=== PATIENT | male | born 1960 ===

== ENCOUNTER 2017-04-01 16:44 | Emergency (ER) | payer MEDICARE, MEDICAID ==
[2017-04-01 17:00] VITALS: BMI 28.8
[2017-04-01 17:02] VITALS: BP 125/76; PULSE 108; RESP 16; TEMP 98.8; O2SAT 100
[2017-04-01] MEDS ORDERED: Albuterol-Ipratrop 3 mg / 0.5 (3 ml) UD INH STA (17:19)
--- NOTE | 2017-04-01 17:23 | ED PDOC ---
HPI: CCC, URI, Sore Throat Time Seen by Provider: 04/01/17 17:19 Chief Complaint (Nursing): Flu-like Symptoms Chief Complaint (Provider): Cough, Shortness of breath History Per: Patient, Family (daughter and ) Onset/Duration Of Symptoms: Days (x 3) Current Symptoms Are (Timing): Still Present Additional Complaint(s): Jeovany Pierce is a 56-year-old male who presents to the emergency department complaining of cough and chest congestion for the past 3 days. Patient was seen by PMD 3 days ago and was started on Levofloxacin, Promethazine, and Ventolin inhaler without improvement in symptoms. No fever or chills. Patient denies any recent travel. PMD: Dr. Kentrell Chairez MD Past Medical History Reviewed: Historical Data, Nursing Documentation, Vital Signs Vital Signs: Last Vital Signs Temp 98.8 F 04/01/17 17:02 Pulse 108 H 04/01/17 17:02 Resp 16 04/01/17 17:02 BP 125/76 04/01/17 17:02 Pulse Ox 100 04/01/17 17:25 - Medical History PMH: Arthritis, Diabetes, HTN, Hypercholesterolemia, End Stage Renal Disease ( MWF dialysis) - Family History Family History: States: No Known Family Hx - Living Arrangements Living Arrangements: With Family - Social History Current smoker - smoking cessation education provided: No Alcohol: None Drugs: Denies - Home Medications Home Medications: Ambulatory Orders Medication Instructions Recorded Apixaban [Eliquis] 5 mg PO BID 06/23/16 Atorvastatin [Lipitor] 40 mg PO HS 06/23/16 Lorazepam [Ativan] 0.5 mg PO HS PRN 06/23/16 Nateglinide [Starlix] 120 mg PO TID 06/23/16 Losartan [Cozaar] 25 mg PO DAILY #30 tab 06/25/16 Metoprolol Succinate XL [Toprol XL] 75 mg PO DAILY #30 tab 06/25/16 oxyCODONE/Acetaminophen [Percocet 1 tab PO QID PRN #20 tab 01/05/17 5/325 mg Tab] Oseltamivir Phosphate [Tamiflu] 75 mg PO BID #10 capsule 04/01/17 Prednisone 50 mg PO DAILY #5 tablet 04/01/17 guaiFENesin/Codeine [Robitussin 5 ml PO ASDIR PRN #200 ml 04/01/17 w/Codeine] - Allergies Allergies/Adverse Reactions: Allergies Allergy/AdvReac Type Severity Reaction Status Date / Time No Known Allergies Allergy Verified 01/05/17 14:46 Review of Systems ROS Statement: Except As Marked, All Systems Reviewed And Found Negative Constitutional: Negative for: Fever, Chills Respiratory: Positive for: Cough, Shortness of Breath, Sputum (yellow and green) Gastrointestinal: Negative for: Nausea, Vomiting Physical Exam - Reviewed Nursing Documentation Reviewed: Yes Vital Signs Reviewed: Yes - Physical Exam Appears: Positive for: Non-toxic, No Acute Distress Head Exam: Positive for: ATRAUMATIC, NORMAL INSPECTION, NORMOCEPHALIC Skin: Positive for: Normal Color. Negative for: Rash Eye Exam: Positive for: Normal appearance ENT: Positive for: Normal ENT Inspection Cardiovascular/Chest: Positive for: Regular Rate, Rhythm Respiratory: Positive for: Rhonchi (scattered). Negative for: Respiratory Distress Extremity: Negative for: Pedal Edema Neurologic/Psych: Positive for: Alert, Oriented - ECG O2 Sat by Pulse Oximetry: 100 (RA) Pulse Ox Interpretation: Normal - Other Rad CXR X-Ray: Interpreted by Me, Viewed By Me X-Ray Interpretation: no infiltrate, cardiomegaly Nebulizer Treatments/Peak Flow - Duonebs Number of Bronchodilator Doses given?: 1 (duoneb) - Pre/Post Peak Flow Pre Treatment Peak Flow: 110 Post treatment Peak Flow: 160 - Steroid Treatment Steroid: IV (IM solumedrol) - Clinical Response Clinical Response: Improved Medical Decision Making Medical Decision Making: Time: 17:19 Initial Impression: 56 year old male with cough and shortness of breath Initial Plan: * Chest X-Ray * Influenza A B * Duoneb 3 ml INH * Solu-medrol 125 mg IVP * Peak Flow pre/post treatment * Reevaluation Flu A is positive. Patient was instructed to stop taking levaquin and was given rx tamiflu. Rx also given for prednisone and robitussin with codeine cough syrup. Advised fluids, rest and follow up in 2-3 days with PMD. Scribe Attestation: Documented by Margaret Walker, acting as a scribe for Angie Kwon PA-C Provider Scribe Attestation: All medical record entries made by the Scribe were at my direction and personally dictated by me. I have reviewed the chart and agree that the record accurately reflects my personal performance of the history, physical exam, medical decision making, and the department course for this patient. I have also personally directed, reviewed, and agree with the discharge instructions and disposition. Disposition - Clinical Impression Clinical Impression: Influenza - Patient ED Disposition Is Patient to be Admitted: No Counseled Patient/Family Regarding: Studies Performed, Diagnosis, Need For Followup, Rx Given - Disposition Referrals: Pérez Elam [Medical Doctor] - Disposition: Routine/Home Disposition Time: 18:10 Condition: STABLE Additional Instructions: Stop taking levaquin, take new rx meds instead. Continue with inhaler. Follow up with primary care doctor in 2-3 days. Prescriptions: guaiFENesin/Codeine [Robitussin w/Codeine] 5 ml PO ASDIR PRN #200 ml PRN Reason: Cough Oseltamivir Phosphate [Tamiflu] 75 mg PO BID #10 capsule Prednisone 50 mg PO DAILY #5 tablet Instructions: Influenza (ED) Forms: [employer] (Yi) Print Language: FAROESE
[2017-04-01] MEDS ORDERED: Albuterol-Ipratrop 3 mg / 0.5 (3 ml) UD ONE (17:24)
--- NOTE | 2017-04-01 18:54 | RAD ---
HISTORY: cough COMPARISON: Portable chest 06/23/2016. TECHNIQUE: Chest PA and lateral FINDINGS: LUNGS: Improved inspiratory volume. No acute pulmonary disease appreciated. PLEURA: No significant pleural effusion identified. No pneumothorax apparent. CARDIOVASCULAR: Stable cardiomegaly. Sternotomy wires again noted. No pulmonary vascular derangement appreciated at this time. OSSEOUS STRUCTURES: No significant abnormalities. VISUALIZED UPPER ABDOMEN: Normal. OTHER FINDINGS: None. IMPRESSION: No acute cardiopulmonary disease appreciated stable cardiomegaly. No pulmonary vascular derangement appreciated at this time.
== END 2017-04-01 18:24 | disposition home or self-care (01) ==
LOC: H.ER 16:44
DX: J11.1 Influenza due to unidentified influenza virus with other respiratory manifestations (principal); E11.22 Type 2 diabetes mellitus with diabetic chronic kidney disease; E78.00 Pure hypercholesterolemia, unspecified; I12.0 Hypertensive chronic kidney disease with stage 5 chronic kidney disease or end stage renal disease; Z79.01 Long term (current) use of anticoagulants; Z99.2 Dependence on renal dialysis
CPT/HCPCS: 71020; 87804; 96374; 99282; J2930

== ENCOUNTER 2017-10-06 21:33 | Emergency (ER) | payer MEDICARE, MEDICAID ==
[2017-10-06 21:33] VITALS: BMI 28.8
[2017-10-06 22:20] VITALS: RESP 18; TEMP 97.9
--- NOTE | 2017-10-06 23:16 | ED PDOC ---
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 Patient evaluated by his primary doctor for same , prescribed Tessalon perles and Augmentin. Patient states he then went for dialysis the next day and his doctor there Dr. Alicea prescribed a Zpak, so he stopped the augmentin and took the zpak, and after finished the zpak started the augmentin again. Denies fever, chest pain, congestion, shortness of breath , palpitations, leg pain/swelling. Past Medical History Reviewed: Historical Data, Nursing Documentation, Vital Signs Vital Signs: Last Vital Signs Temp 97.9 F 10/06/17 22:17 Pulse 89 10/06/17 22:17 Resp 18 10/06/17 22:17 BP 108/64 10/06/17 22:17 Pulse Ox 96 10/06/17 23:17 - Medical History PMH: Arthritis, Diabetes, HTN, Hypercholesterolemia, End Stage Renal Disease ( MWF dialysis), Chronic Kidney Disease Denies: HIV - Surgical History Surgical History: CABG - Family History Family History: States: Unknown Family Hx - Living Arrangements Living Arrangements: With Family - Social History Current smoker - smoking cessation education provided: No Alcohol: None Drugs: Denies - Immunization History Hx Tetanus Toxoid Vaccination: Yes Hx Influenza Vaccination: Yes Hx Pneumococcal Vaccination: Yes - Home Medications Home Medications: Ambulatory Orders Medication Instructions Recorded Apixaban [Eliquis] 5 mg PO BID 06/23/16 Atorvastatin [Lipitor] 40 mg PO HS 06/23/16 Lorazepam [Ativan] 0.5 mg PO HS PRN 06/23/16 Nateglinide [Starlix] 120 mg PO TID 06/23/16 Losartan [Cozaar] 25 mg PO DAILY #30 tab 06/25/16 Metoprolol Succinate XL [Toprol XL] 75 mg PO DAILY #30 tab 06/25/16 oxyCODONE/Acetaminophen [Percocet 1 tab PO QID PRN #20 tab 01/05/17 5/325 mg Tab] Oseltamivir Phosphate [Tamiflu] 75 mg PO BID #10 capsule 04/01/17 Prednisone 50 mg PO DAILY #5 tablet 04/01/17 guaiFENesin/Codeine [Robitussin 5 ml PO ASDIR PRN #200 ml 04/01/17 w/Codeine] Albuterol HFA [Ventolin HFA 90 1 puff IH Q4 PRN #1 inh 10/07/17 mcg/actuation (8 g)] predniSONE [Prednisone] 60 mg PO DAILY #12 tab 10/07/17 - Allergies Allergies/Adverse Reactions: Allergies Allergy/AdvReac Type Severity Reaction Status Date / Time No Known Allergies Allergy Verified 10/06/17 22:17 Review of Systems ROS Statement: Except As Marked, All Systems Reviewed And Found Negative Respiratory: Positive for: Cough Physical Exam - Reviewed Nursing Documentation Reviewed: Yes Vital Signs Reviewed: Yes - Physical Exam Appears: Positive for: Well, Non-toxic, No Acute Distress Head Exam: Positive for: ATRAUMATIC, NORMAL INSPECTION, NORMOCEPHALIC Skin: Positive for: Normal Color Eye Exam: Positive for: Normal appearance ENT: Positive for: Normal ENT Inspection Cardiovascular/Chest: Positive for: Regular Rate, Rhythm Respiratory: Positive for: Rhonchi, Wheezing (mild expiratory wheezing). Negative for: Crackles, Rales, Respiratory Distress Gastrointestinal/Abdominal: Positive for: Normal Exam Back: Positive for: Normal Inspection Extremity: Positive for: Normal ROM Neurologic/Psych: Positive for: Alert, Oriented - ECG O2 Sat by Pulse Oximetry: 96 - Radiology X-Ray: Viewed By Me (reviewed with ED attending) X-Ray Interpretation: No Acute Disease (no changes from prior) - Progress ED Course And Treament: xray, duonebs, solumedrol IM On re-eval, patient states he is feeling better. Lungs clear Patient educated on findings, discharged with rx albuterol HFA, prednisone Advised to follow up PMD 2-3 days. Return precautions given Disposition - Clinical Impression Clinical Impression: Bronchitis - Patient ED Disposition Is Patient to be Admitted: No Counseled Patient/Family Regarding: Studies Performed, Diagnosis, Need For Followup, Rx Given - Disposition Referrals: Kentrell Chairez MD [Primary Care Provider] - Disposition: Routine/Home Disposition Time: 00:10 Condition: IMPROVED Prescriptions: Albuterol HFA [Ventolin HFA 90 mcg/actuation (8 g)] 1 puff IH Q4 PRN #1 inh PRN Reason: Wheezing predniSONE [Prednisone] 60 mg PO DAILY #12 tab Instructions: Acute Bronchitis Forms: [facility] (Macedonian) Print Language: MACEDONIAN
[2017-10-06] MEDS ORDERED: Albuterol-Ipratrop 3 mg / 0.5 (3 ml) UD ONE (23:51)
[2017-10-06] MEDS: Albuterol-Ipratrop 3 mg / 0.5 (3 ml) UD IH STA (23:53)
[2017-10-07 00:20] VITALS: BP 118/63; PULSE 96; O2SAT 100
[2017-10-07] MEDS ORDERED: Albuterol-Ipratrop 3 mg / 0.5 (3 ml) UD ONE (00:26)
[2017-10-07] MEDS: Albuterol-Ipratrop 3 mg / 0.5 (3 ml) UD IH STA (00:27)
--- NOTE | 2017-10-07 10:02 | RAD ---
HISTORY: cough COMPARISON: 04/01/2017 TECHNIQUE: Chest PA and lateral FINDINGS: LUNGS: No active pulmonary disease. PLEURA: No significant pleural effusion identified. No pneumothorax apparent. CARDIOVASCULAR: Cardiomegaly as before. Central pulmonary vasculature probably [id number] similar in appearance. Midline sternotomy and coronary artery bypass changes noted OSSEOUS STRUCTURES: Sternotomy thoracic spondylosis VISUALIZED UPPER ABDOMEN: Normal. OTHER FINDINGS: None. IMPRESSION: Cardiomegaly and postop changes as before . No interval pathology noted.
== END 2017-10-07 00:55 | disposition home or self-care (01) ==
LOC: H.ER 21:33
DX: J40 Bronchitis, not specified as acute or chronic (principal); E78.00 Pure hypercholesterolemia, unspecified; I12.0 Hypertensive chronic kidney disease with stage 5 chronic kidney disease or end stage renal disease; N18.6 End stage renal disease; Z79.01 Long term (current) use of anticoagulants; Z95.1 Presence of aortocoronary bypass graft; Z99.2 Dependence on renal dialysis
CPT/HCPCS: 71046; 94150; 94640; 96372; 99283; J2930